=== PATIENT | male | born 1990 | race Two or more races ===

== ENCOUNTER 2024-10-19 13:53 | Emergency (ER) | payer BC ==
[~2024-10-19] VITALS: Ht 170.2 cm; Wt 65.8 kg
[2024-10-19] MEDS ORDERED: hydrOXYzine 10 MG TABLET ONE (14:30)
[2024-10-19] MEDS: hydrOXYzine 10 MG TABLET PO ONE (14:33)
[2024-10-19 14:43] LABS: BASOPHILS % (AUTO) 0.5 % (0.0-2.0); EOSINOPHILS % (AUTO) 0.3 % (0.0-6.0); HEMATOCRIT 50 % (39-51); HEMOGLOBIN 16.8 g/dL (13.5-17.5); LYMPHOCYTES # (AUTO) 1.8 K/uL (0.8-4.8); LYMPHOCYTES % (AUTO) 19.1 % (20.0-44.0); MEAN CORPUSCULAR HEMOGLOBIN 31 PG (26.0-33.0); MEAN CORPUSCULAR HGB CONC 34 g/dl (31.0-36.0); MEAN CORPUSCULAR VOLUME 91 fL (80-96); MONOCYTES # (AUTO) 0.6 K/uL (0.1-1.30); MONOCYTES % (AUTO) 6.3 % (2.0-12.0); NEUTROPHILS # (AUTO) 6.8 K/uL (1.8-8.9); NEUTROPHILS % (AUTO) 73.8 % (43.0-81.0); PLATELET COUNT (AUTO) 235 K/uL (150-450); RED BLOOD CELL COUNT(AUTO) 5.47 MIL/uL (4.5-6.0); WHITE BLOOD COUNT (AUTO) 9.2 K/uL (4.3-11.0)
[2024-10-19 14:51] LABS: CALCIUM, SERUM 9.4 mg/dL (8.5-10.1); CARBON DIOXIDE 27 mmol/L (21-32); CHLORIDE 103 mmol/L (98-107); CREATININE 1.2 mg/dL (0.6-1.3); GLUCOSE 107 mg/dL (74-106); POTASSIUM 4.7 mmol/L (3.5-5.1); SODIUM SERUM 136 mmol/L (136-145); UREA NITROGEN, BLOOD 25 mg/dL (7-18)
[2024-10-19 15:53] VITALS: BP 127/69; TEMP 98.4; O2SAT 98
== END 2024-10-19 15:54 | disposition home or self-care (01) ==
LOC: ER 13:59
DX: R07.89 Other chest pain (principal)
CPT/HCPCS: 99285; 71045; 93005; 85025; 80048; 36415; 84443; 84484; Q0177